=== PATIENT | male | born 1995 | race American Indian/Alaskan Native ===

== ENCOUNTER 2024-04-17 10:08 | Emergency (ER) | payer SELFPAY ==
[~2024-04-17] VITALS: Ht 22.9 cm; Wt 63.6 kg
[2024-04-17 10:15] VITALS: BP 123/78; PULSE 88; TEMP 98.1
[2024-04-17] MEDS ORDERED: CEPHALEXIN500 M1 PO (10:20)
[2024-04-17] MEDS ORDERED: DOXYCYCLINE 10100 MG PO (10:38)
== END 2024-04-17 10:58 | disposition home or self-care (01) ==
LOC: COL.ER 10:08
DX: L03.011 Cellulitis of right finger (principal); L02.511 Cutaneous abscess of right hand

== ENCOUNTER 2024-05-16 17:50 | Emergency (ER) | payer SELFPAY ==
[~2024-05-16] VITALS: Ht 175.3 cm; Wt 68.2 kg
[~2024-05-16 17:50] MED LIST: CEPHALEXIN500 M1 PO; DOXYCYCLINE 10100 MG PO
[2024-05-16 18:02] VITALS: BP 121/81; TEMP 98.5
[2024-05-16 19:30] VITALS: PULSE 78
== END 2024-05-16 19:30 | disposition home or self-care (01) ==
LOC: COL.ER 17:50
DX: L42 Pityriasis rosea (principal)